=== PATIENT | female | born 1980 | race African-American/Black ===

== ENCOUNTER 2023-09-01 17:47 | Inpatient (IN) | payer MEDICAID ==
[~2023-09-01] VITALS: Ht 160 cm; Wt 90.1 kg
[2023-09-01 18:35] LABS: EOSINOPHILS % 0.5 % (0.0-5.0); LYMPHOCYTES % 23.1 % (20.0-50.0); MEAN CORPUSCULAR HEMOGLOBIN 12.6 pg (28.0-32.0); MEAN CORPUSCULAR HGB CONC 24.4 g/dL (31.0-37.0); MEAN CORPUSCULAR VOLUME 51.5 fL (81.0-99.0); MEAN PLATELET VOLUME 9.4 fl (7.4-10.4); MONOCYTES % 6.8 % (2.0-8.0); NEUTROPHILS % 68.6 % (40.0-76.0); PLATELET 241 x1000/uL (130-400); RED BLOOD CELL COUNT 3.08 mill/uL (4.2-5.4); RED CELL DISTRIBUTION WIDTH 25.7 % (11.6-14.6); WHITE BLOOD COUNT 6.5 x1000/uL (4.5-11.0)
[2023-09-01 18:44] LABS: ALANINE AMINOTRANSFERASE < 7 IU/L (10-49); ALBUMIN 4.3 g/dL (3.2-4.8); ASPARTATE AMINOTRANSFERASE 15 IU/L (<34); BILIRUBIN TOTAL 0.3 mg/dL (0.1-1.0); CALCIUM 8.6 mg/dL (8.7-10.4); CARBON DIOXIDE 23 mEq/L (21-32); CHLORIDE 106 mEq/L (98-107); CREATININE 0.6 mg/dL (0.6-1.0); GLUCOSE 122 mg/dL (70-105); POTASSIUM 3.6 mEq/L (3.5-5.1); PROTEIN TOTAL 7.5 g/dL (6.0-8.3); SODIUM 137 mEq/L (136-145); UREA NITROGEN BLOOD 9 mg/dL (9-23)
[2023-09-01 18:54] LABS: HCG SCREEN POSITIVE
[2023-09-01 18:56] LABS: ADD RBC MORPHOLOGY YES; DIFFERENTIAL COMMENT 1
[2023-09-01 19:02] LABS: HEMATOCRIT. 15.8 % (36.0-48.0); HEMOGLOBIN. 3.9 g/dL (12.0-16.0)
[2023-09-01 19:20] LABS: ANISOCYTOSIS 2+; HYPOCHROMASIA 3+; MICROCYTOSIS 3+; PLATELET ESTIMATE NORMAL
[2023-09-01 19:21] LABS: OVALOCYTES 1+
[2023-09-01 19:30] LABS: CLARITY URINE CLEAR (CLEAR); COLOR URINE YELLOW (YELLOW); GLUCOSE URINE NEGATIVE (NEGATIVE); KETONES URINE NEGATIVE (NEGATIVE); LEUKOCYTE ESTERASE URINE NEGATIVE (NEGATIVE); NITRITE URINE NEGATIVE (NEGATIVE); OCCULT BLOOD URINE 1+ (NEGATIVE); PROTEIN URINE NEGATIVE (NEGATIVE); SPECIFIC GRAVITY URINE 1.007 (1.005-1.030); UROBILINOGEN URINE 0.2 E.U./dL (0.2-1.0)
[2023-09-01 19:40] LABS: BACTERIA URINE NONE SEEN; RBC URINE 0-2 /hpf (0-2); SQUAMOUS EPITHELIAL CELL URINE FEW /lpf (RARE/1+); WBC URINE NONE SEEN /hpf (0-2)
[2023-09-01] MEDS ORDERED: ONDANSETRON HCL 4MG/2ML INJ IV PRN (22:15)
[2023-09-01] MEDS ORDERED: ACETAMINOPHEN 325MG TABLET PO PRN (22:15)
[2023-09-01] MEDS ORDERED: DIPHENHYDRAMINE 50MG/ML VIAL IV PRN (22:15)
[2023-09-01] MEDS: SODIUM CHLORIDE 0.9% 1,000 ML IV SCH (23:13)
[2023-09-01 23:18] LABS: IRON 9 ug/dL (50-170); TOTAL IRON BINDING CAPACITY 336 ug/dl (250-425)
[2023-09-01] MEDS: IRON SUCROSE COMPLEX 100 MG/5 ML ML IV SCH (23:39)
[2023-09-02] VITALS (11 sets, daily range): BP systolic 125–143; BP diastolic 71–87; PULSE 75–85; RESP 11–24; TEMP 97.2–98.6
[2023-09-02 08:22] LABS: HEMATOCRIT 28.7 % (36.0-48.0); HEMOGLOBIN 8.3 g/dL (12.0-16.0); MEAN CORPUSCULAR HEMOGLOBIN 18.6 pg (28.0-32.0); MEAN CORPUSCULAR VOLUME 64.2 fL (81.0-99.0); RED BLOOD CELL COUNT 4.47 mill/uL (4.2-5.4); RED CELL DISTRIBUTION WIDTH 38.8 % (11.6-14.6); WHITE BLOOD COUNT 7.2 x1000/uL (4.5-11.0)
[2023-09-02 11:18] LABS: PLATELET 195 x1000/uL (130-400)
[2023-09-02] MEDS: ACETAMINOPHEN 325MG TABLET PO PRN (17:05)
[2023-09-02] MEDS: MISOPROSTOL 200MCG TABLET PO NR (22:34)
[2023-09-02] MEDS: IBUPROFEN 600MG TABLET PO PRN (22:35)
[2023-09-02] MEDS: OXYTOCIN 30 UNITS/500ML NS PMX 500 ML IV SCH (22:35)
[2023-09-03] VITALS (7 sets, daily range): BP systolic 106–142; BP diastolic 63–99; PULSE 61–74; RESP 10–24; TEMP 97.5–98
[2023-09-03 20:06] LABS: HEMATOCRIT 26.4 % (36.0-48.0); HEMOGLOBIN 7.8 g/dL (12.0-16.0); MEAN CORPUSCULAR HEMOGLOBIN 18.9 pg (28.0-32.0); MEAN CORPUSCULAR HGB CONC 29.5 g/dL (31.0-37.0); MEAN CORPUSCULAR VOLUME 64.2 fL (81.0-99.0); PLATELET 170 x1000/uL (130-400); RED BLOOD CELL COUNT 4.11 mill/uL (4.2-5.4); RED CELL DISTRIBUTION WIDTH 39.1 % (11.6-14.6); WHITE BLOOD COUNT 7.6 x1000/uL (4.5-11.0)
[2023-09-04] VITALS: BP 121/62; PULSE 70; RESP 16; TEMP 97.4
[2023-09-04 04:00] VITALS: BP 123/70; PULSE 57; TEMP 97.5
[2023-09-04 07:19] LABS: WHITE BLOOD COUNT 6.8 x1000/uL (4.5-11.0)
[2023-09-04 07:20] LABS: HEMATOCRIT 26.1 % (36.0-48.0); HEMOGLOBIN 7.4 g/dL (12.0-16.0); MEAN CORPUSCULAR HEMOGLOBIN 18.6 pg (28.0-32.0); MEAN CORPUSCULAR VOLUME 65.7 fL (81.0-99.0); RED BLOOD CELL COUNT 3.97 mill/uL (4.2-5.4)
[2023-09-04 07:21] LABS: MEAN CORPUSCULAR HGB CONC 28.4 g/dL (31.0-37.0); RED CELL DISTRIBUTION WIDTH 40.5 % (11.6-14.6)
[2023-09-04 08:00] VITALS: BP 117/71; PULSE 76; RESP 18; TEMP 97.8
[2023-09-04 10:16] LABS: PLATELET 147 x1000/uL (130-400)
[2023-09-04 12:00] VITALS: PULSE 67; RESP 13; TEMP 97.7
[2023-09-04 14:08] VITALS: BP 117/81; PULSE 68; TEMP 97.7; O2SAT 99
== END 2023-09-04 15:25 | disposition home or self-care (01) | DRG 564 ==
LOC: ER 17:47 → EDBEDREQTM 21:58 → EDBEDREQSVC 21:58 → EDBEDREQ 21:58 → 5EST 09-02 03:37
PROVIDERS: ADMIT Internal Medicine; ATTEND Internal Medicine
PROC: 30233N1 Transfusion of Nonautologous Red Blood Cells into Peripheral Vein, Percutaneous Approach (ICD-10-PCS; principal; 2023-09-02)
DX: O03.4 Incomplete spontaneous abortion without complication (principal); D25.9 Leiomyoma of uterus, unspecified; D64.9 Anemia, unspecified; N84.0 Polyp of corpus uteri; E61.1 Iron deficiency; N92.0 Excessive and frequent menstruation with regular cycle
CPT/HCPCS: 36415; 76801; 76830; 76856; 80053; 81003; 83540; 83550; 84702; 84703; 85025; 85027; 86850; 86900; 86920; 99291; P9016; J2590